=== PATIENT | female | born 1995 | race Caucasian/White ===

== ENCOUNTER 2016-06-08 11:06 | Emergency (ER) | payer OTHER ==
[2016-06-08] MEDS ORDERED: SODIUM CHLORIDE 0.9% 1,000 ML ONE (11:22)
[2016-06-08] MEDS ORDERED: ONDANSETRON 4 MG VIAL ONE (11:22)
[2016-06-08] MEDS ORDERED: MORPHINE 4 MG/ML SYR ONE (11:22)
[2016-06-08] MEDS ORDERED: DILAUDID 1 MG/ML AMP ONE (13:47)
[2016-06-08] MEDS ORDERED: CEFTRIAXONE 1 GM VIAL ONE (13:48)
[2016-06-08] MEDS ORDERED: SODIUM CHLORIDE 0.9% 50 ML IV ONE (13:48)
== END 2016-06-08 14:05 | disposition home or self-care (01) ==
LOC: ER 11:06
DX: R11.0 Nausea (principal); N10 Acute pyelonephritis; F17.210 Nicotine dependence, cigarettes, uncomplicated
CPT/HCPCS: 36415; 74176; 80053; 81001; 83690; 84703; 85025; 87088; 96361; 96374; 96375